=== PATIENT | female | born 1955 | race Caucasian/White ===

== ENCOUNTER 2020-04-23 08:50 | Outpatient (CLI) | payer BC, SELFPAY ==
[2020-04-23 09:22] LABS: Hematocrit 34.9 % (37.0-47.0); Hemoglobin 10.8 g/dL (12.0-15.0); Mean Corpuscular HGB Conc 30.9 g/dl (32-36); Mean Corpuscular Hemoglobin 28.3 pg (26-34); Mean Corpuscular Volume 91.4 fl (80-100); Platelet Count Result 234 k/mm3 (150-375); Red Blood Count 3.82 M/mm3 (4.2-5.4); Red Cell Distribution Width 13.2 % (11.5-14.5); White Blood Count 7.9 K/mm3 (4.5-10.0)
[2020-04-23 09:26] LABS: Add Urine Microscopic? YES; Appearance Urine Clear (Clear); Bacteria Urine Trace /hpf; Bilirubin Urine Negative (Negative); Blood Urine Negative (Negative); Color Urine Yellow (Yellow); Glucose Urine UA Negative (Negative); Ketones Urine Negative (Negative); Leukocyte Esterase Ur Trace LEU/UL (Negative); Mucus Urine Rare /lpf; Nitrate Urine Negative (Negative); Protein Urine Negative (Negative); RBC Urine 0-2 /hpf (0-2); Specific Grav Ur 1.015 (1.001-1.035); Squamous Epithelial Cell Urine Few /hpf (Few); Urobilinogen Urine Negative mg/dL (<2.0); WBC Urine 0-3 /hpf
[2020-04-23 09:38] LABS: Alanine Aminotransferase 36 U/L (4-35); Alkaline Phosphatase 118 U/L (38-126); Aspartate Amino Transferase 29 U/L (14-36); Bilirubin,Total 0.4 mg/dL (0.2-1.3); Blood Urea Nitrogen 12 mg/dL (7-17); Calcium 8.8 mg/dL (8.4-10.2); Carbon Dioxide 33 mmol/L (22-30); Chloride 101 mmol/L (98-107); Cholesterol 182 mg/dL (0-200); Estimated Glomerular Filt Rate > 60; Glucose 98 mg/dL (65-105); HDL Direct 48 mg/dL; Potassium 4.2 mmol/L (3.4-5.0); Sodium 140 mmol/L (137-145); Triglycerides 151 mg/dL (<150)
[2020-04-23 09:49] LABS: LDL Cholesterol Direct 113 mg/dL
[2020-04-23 10:12] LABS: Vitamin D 25 Hydroxy 34.1 ng/mL
[2020-04-23 10:42] LABS: Folic Acid 14.7 ng/mL (2.76->20)
[2020-04-23 12:43] LABS: Iron 63 ug/dL (37-170)
[2020-04-23 12:49] LABS: Percent Iron Saturation 14 % (20-50)
== END 2020-04-23 08:51 | disposition home or self-care (01) ==
PROVIDERS: Visit Provider Physician Assistant
DX: D64.9 Anemia, unspecified (principal); E55.9 Vitamin D deficiency, unspecified; R30.0 Dysuria
CPT/HCPCS: 36415; 80053; 80061; 81001; 82306; 82607; 82728; 82746; 83540; 83550; 84443; 85027

== ENCOUNTER 2020-05-22 00:43 | Outpatient (CLI) | payer BC, SELFPAY ==
[2020-05-22 18:11] LABS: SARS-CoV-2 RNA PCR Negative
== END 2020-05-22 00:44 | disposition home or self-care (01) ==
LOC: ANHCOVIDDT 00:43
PROVIDERS: Visit Provider Internal Medicine Gastroenterology
DX: Z01.812 Encounter for preprocedural laboratory examination (principal); Z11.59 Encounter for screening for other viral diseases
CPT/HCPCS: 87635; C9803; U0003

== ENCOUNTER 2020-05-25 01:43 | Day surgery (SDC) | payer BC, SELFPAY ==
[2020-05-17 14:16] VITALS: BMI 42.6
[2020-05-25 11:21] VITALS: BP 144/71; PULSE 78; RESP 18; TEMP 37.4; O2SAT 94; BMI 47.3
[2020-05-25] MEDS: LACTATED RINGERS 1,000 ML 150 ML IV CONT (11:38)
--- NOTE | 2020-05-25 11:42 | WPDANESEPPF ---
Anes - Initial Pre Proc Eval Procedure: Operation Date: 05/25/20 12:45 Proposed Procedures p Screening Colonoscopy - Bubba Maldonado MD Date/Time: 05/25/20 11:42 Surgeon: Bubba Maldonado MD Pre Op Diagnosis: Neoplasm Screening Patient Data Age: 65 Gender: F Height: 5 ft 8 in Weight: 141.3 kg Last Vital Signs Temp 99.4 F 05/25/20 11:21 Pulse 78 05/25/20 11:21 Resp 18 05/25/20 11:21 BP 144/71 H 05/25/20 11:21 Pulse Ox 94 05/25/20 11:21 Allergies Allergy/AdvReac Type Severity Reaction Status Date / Time No Known Allergies Allergy Mild Verified 05/25/20 11:18 Home Medications Medication Instructions Recorded Confirmed Type multivitamin with minerals 1 tablet PO DAILY 09/25/19 05/17/20 History cholecalciferol (vitamin D3) 25 1,000 unit PO DAILY 09/30/19 05/17/20 History mcg (1,000 unit) capsule citalopram 20 mg tablet 20 mg PO DAILY #30 tablet 04/26/20 05/17/20 Rx ferrous sulfate 325 mg (65 mg 325 mg PO BID #60 tablet 04/26/20 05/17/20 Rx iron) tablet cetirizine 10 mg tablet 10 mg PO DAILY #90 tablet 05/12/20 05/17/20 Rx Patient hx anesthesia problems: none Family hx anesthesia problems: none PMFSH Past Medical History Medical History (Updated 05/25/20 @ 11:42 by Jose Patricio MD) BMI 45.0-49.9, adult Hyperlipidemia Social History Social History Smoking status: Never smoker Second hand tobacco smoke exposure: No Alcohol intake: never Substance use: never Anes - Eval Final PreProcedure Day of Procedure 05/25/20 11:42 Patient weight: morbidly obese Heart: regular rate and rhythm Lungs: clear to auscultation Airway: Mallampati scale class III Neurological: alert and oriented Last oral intake: >/= 8 hours ASA classification: III Emergent: no Anesthetic plan: proceed Anesthesia type and monitoring: general and standard monitoring Informed Consent: The patient's anesthetic plan and its attendant risks and benefits were discussed with the patient/family/POA. Questions were solicited and answers provided to the satisfaction of the patient/family/POA.
[2020-05-25 11:43] VITALS: BP 144/71; PULSE 78; RESP 18; TEMP 37.4; O2SAT 94; BMI 47.3
--- NOTE | 2020-05-25 12:24 | PM.HPGS ---
History of Present Illness History of Present Illness Consent: Risks, benefits, and alternatives have been discussed and questions answered. Patient agrees to proceed with procedure. Chief complaint: Neoplasm Screening Narrative: Jana Hammonds is a 65 year old female here for screening colonoscopy Review of Systems Constitutional: Constitutional: Denies headache(s) and Denies weakness Eyes: Eyes: Denies blurry vision ENT: Reports Normal hearing present, Denies headache(s) and Denies neck pain Cardiovascular: Cardiovascular: Denies chest pain and Denies dyspnea Respiratory: Respiratory: Denies dyspnea Gastrointestinal: Gastrointestinal: Reports no additional gastrointestinal complaints Genitourinary: Genitourinary: Denies dysuria Musculoskeletal: Musculoskeletal: Denies neck pain Integumentary/Breasts: Skin/Breast: Denies dry skin Neurologic: Reports Normal hearing present, Denies headache(s) and Denies weakness Psychiatric: Psychiatric: Denies anxiety Endocrine: Endocrine: Denies change in body appearance Hematologic/Lymphatic: Hematologic/Lymphatic: Denies easy bleeding Allergic/Immunologic: Allergic/Immunologic: Denies urticaria PMF Past Medical History Medical History (Updated 05/25/20 @ 12:25 by Bubba Maldonado MD) BMI 45.0-49.9, adult Colon cancer screening Hyperlipidemia Social History Social History Smoking status: Never smoker Second hand tobacco smoke exposure: No Alcohol intake: never Substance use: never Meds Home Medications and Allergies Home Medications Medication Instructions Recorded Confirmed Type multivitamin with minerals 1 tablet PO DAILY 09/25/19 05/17/20 History cholecalciferol (vitamin D3) 25 1,000 unit PO DAILY 09/30/19 05/17/20 History mcg (1,000 unit) capsule citalopram 20 mg tablet 20 mg PO DAILY #30 tablet 04/26/20 05/17/20 Rx ferrous sulfate 325 mg (65 mg 325 mg PO BID #60 tablet 04/26/20 05/17/20 Rx iron) tablet cetirizine 10 mg tablet 10 mg PO DAILY #90 tablet 05/12/20 05/17/20 Rx Allergies Allergy/AdvReac Type Severity Reaction Status Date / Time No Known Allergies Allergy Mild Verified 05/25/20 11:18 Vital Signs Vital Signs - 24 hr 05/25/20 11:21 05/25/20 11:43 Temperature 99.4 F 99.4 F Pulse Rate 78 78 Respiratory Rate 18 18 Blood Pressure 144/71 H 144/71 H Pulse Oximetry 94 94 Exam Const: General: comfortable and no acute distress HENMT: General nose exam: Normal nares present Eyes: General: appearance normal, both eyes and all related structures Neck: Neck: no JVD Resp: Auscultation: clear to auscultation bilaterally Cardio: Rate: regular rate Rhythm: regular rhythm GI: Inspection: non-distended GI Palp: Yes Soft to palpation Skin: General skin exam: normal color Neuro: General: gait normal Speech: normal speech Extrem: General: normal to inspection Psych: Mental Status: mental status grossly normal Assessment and Plan Assessment and plan (1) Colon cancer screening: Code(s): Z12.11 - Encounter for screening for malignant neoplasm of colon Status: Acute Assessment and Plan: will proceed with colonoscopy (2) Depression with anxiety: Code(s): F41.8 - Other specified anxiety disorders Status: Acute
[2020-05-25 12:49] VITALS: BP 140/76; PULSE 78; RESP 18; O2SAT 96
[2020-05-25 12:59] VITALS: BP 151/93; PULSE 75; RESP 17; O2SAT 96
[2020-05-25 13:09] VITALS: BP 152/87; PULSE 73; RESP 19; O2SAT 96
== END 2020-05-25 13:36 | disposition home or self-care (01) ==
PROVIDERS: Visit Provider Internal Medicine Gastroenterology
PROC: 0DJD8ZZ Inspection of Lower Intestinal Tract, Via Natural or Artificial Opening Endoscopic (ICD-10-PCS; CPT 45378; principal; 2020-05-25 12:45)
DX: Z12.11 Encounter for screening for malignant neoplasm of colon (principal); K62.1 Rectal polyp; K64.8 Other hemorrhoids; E78.5 Hyperlipidemia, unspecified; E66.01 Morbid (severe) obesity due to excess calories; Z68.42 Body mass index [BMI] 45.0-49.9, adult
CPT/HCPCS: 45385; 88305; J2704; J7120

== ENCOUNTER 2021-01-07 12:57 | Observation (INO) | payer BC, SELFPAY ==
[2021-01-07] VITALS (7 sets, daily range): BP systolic 115–134; BP diastolic 61–81; PULSE 66–94; RESP 14–20; TEMP 36.4–36.7; O2SAT 94–96; BMI 47.6
--- NOTE | ~2021-01-07 | US_ITS ---
US abdomen limited INDICATION: Abdomen pain. PROCEDURE: Realtime right upper abdominal ultrasound. COMPARISON: No prior studies for comparison. FINDINGS: The pancreas is normal without focal mass or pancreatic ductal dilation. Liver echotexture is increased, consistent with fatty infiltration. There is normal directional flow in the portal ve in. There are gallstones with gallbladder wall thickening and positive sonographic Yates's sign. Common bile duct measures 4.5 mm. IMPRESSION: 1: Cholelithiasis with gallbladder wall thickening and positive sonographic Yates's sign. Findings c ompatible with cholecystitis. 2: Fatty infiltration of the liver. Reviewed, dictated and finalized at location B. IMPRESSION: 1: Cholelithiasis with gallbladder wall thickening and positive sonographic Mur phy's sign. Findings compatible with cholecystitis. 2: Fatty infiltration of the liver.
--- NOTE | ~2021-01-07 | CT_ITS ---
EXAMINATION: CT abdomen pelvis w con DATE: 01/07/2021 14:32 INDICATION: Abdominal pain for 5 days TECHNIQUE: Computed tomography (CT) of the abdomen and pelvis was performed with 100 cc Omnipaque 350 intravenous contrast. Automated exposure control and iterative reconstruction technique were employe d. Exam dose: 1496.53 mGy-cm total exam DLP. COMPARISON: None. FINDINGS: The lung bases are clear of infiltrate or consolidation. Heart size within normal range. No pericardial or pleural effusion. 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 There is gallbladder wall thickening and pericholecystic fat stranding suggesting acute cholecystitis . Gallbladder ultrasound correlation is recommended. Diffuse fatty infiltration of the liver. No hepatic space-occupying mass lesion is evident. No intrahepatic or extrahepatic bile duct dilatati on. Normal splenic size. No pancreatic mass lesion, calcification or ductal dilatation. Normal morphology of the adrenal glands. No renal mass lesion or urinary tract calculus or hydroureteronephrosis. The urinary bladder is unrem arkable. The uterus is normal in appearance as is the left ovary. There is asymmetric right ovarian enlargement, measuring up to 3.9 x 5 cm, with largely fluid attenua tion. Consider pelvic sonographic correlation. Mild diffuse urinary bladder wall thickening with minimal pericystic fat stranding; cystitis is not e xcluded. Normal caliber of the abdominal aorta. No abdominal aortic aneurysm. No intraperitoneal or retroperit diana or pelvic mass lesion or adenopathy or ascites is noted otherwise. Small fat-containing umbilical hernia. No suspicious osteolytic or osteoblastic lesions IMPRESSION: Gallbladder wall thickening and pericholecystic fat stranding suggest acute cholecystiti s Hepatic steatosis 3.9 x 5 cm cystic lesion of the right ovary; consider pelvic sonographic correlation Mild diffuse bladder wall thickening and minimal pericholecystic fat stranding; recommend clinical co rrelation for cystitis Foramen of Morgagni hernia containing fat, liver Small fat-containing umbilical hernia Reviewed, dictated and finalized at Location [facility]. Reviewed, dictated and finalized at location A. IMPRESSION: Gallbladder wall thickening and pericholecystic fat stranding sugg est acute cholecystitis Hepatic steatosis 3.9 x 5 cm cystic lesion of the right ovary; consider pelvic sonographic correl ation Mild diffuse bladder wall thickening and minimal pericholecystic fat stranding; recommend clinical correlation for cystitis Foramen of Morgagni hernia containing fat, liver Small fat-containing umbilical hernia
--- NOTE | ~2021-01-07 | MR_ITS ---
EXAMINATION: MR MRCP wo/w con/w 3D wo ind DATE: 01/08/2021 09:21 INDICATION: Elevated liver function test, abdominal pain TECHNIQUE: Magnetic resonance imaging (MRI) of the abdomen was performed without and with intravenous contrast. Sequences included coronal T2-weighted SS-FSE ARC, coronal T2-weighted FS SS-FSE, coronal T2-weighted 2D FS FIESTA, Water:Coronal LAVA-Flex, sagittal T2-weighted SS-FSE ARC, axial SSFSE ARC, axial 3D DualEcho, axial DWI B=600, axial T1-weighted LAVA, FAT:Coronal LAVA-Flex, and coronal in and opposed phase LAVA-Flex. Thick-slab T2-weighted FRFSE-XL images were obtained for magnetic resonance cholangiopancreatography (MRCP). Maximum intensity projection 3-D reconstructions of the volumetric data were created by the technologist. Postcontrast sequences included a time course of axial T1-weig hted LAVA, FAT:Coronal LAVA-Flex, coronal in and opposed phase LAVA-Flex, and Water:Coronal LAVA-Flex . COMPARISON: CT and ultrasound from yesterday CONTRAST: Multihance, 20 cc FINDINGS: ABDOMEN MRI: The lung bases are clear. The heart size is normal. There is loss of hepatic parenchymal signal on opposed phase imaging, consistent with hepatic steatosis. The spleen, pancreas, and adren al glands are normal. There is mild distention of the gallbladder which contains multiple stones. Sto germán are also noted in the gallbladder neck. Mild enhancement and thickening of the gallbladder wall a re noted. There is mild inflammation surrounding the gallbladder. There is a 6 mm cyst of the right k idney. The left kidney is unremarkable. There are no pathologically enlarged abdominal lymph nodes. N o dilated loops of bowel are present. No abnormal enhancement is present after contrast administratio n. There is a 4.7 cm cystic lesion of the right adnexa. ABDOMEN MRCP: The common bile duct is normal without stones or stricture. There is no intrahepatic or extrahepatic biliary dilatation. Pancreas divisum is noted. The pancreatic duct is not dilated. IMPRESSION: 1. Cholelithiasis and acute cholecystitis. 2. Diffuse hepatic steatosis. 3. Cystic lesion of the right adnexa. Follow-up pelvic ultrasound is recommended. Reviewed, dictated and finalized at location A. IMPRESSION: 1. Cholelithiasis and acute cholecystitis. 2. Diffuse hepatic steatosis. 3. Cystic lesion of the right adnexa. Follow-up pelvic ultrasound is recommende d.
[2021-01-07 13:25] LABS: Basophils Percent Auto 0.7 % (0.2-1.2); Eosinophils Absolute Auto 0.1 K/mm3 (0-0.3); Eosinophils Percent Auto 1.8 % (0-4.4); Hematocrit 39.8 % (37.0-47.0); Hemoglobin 13.1 g/dL (12.0-15.0); Immature Granulocyte Absolute 0.02 K/mm3 (0.00-0.031); Immature Granulocyte Percent A 0.4 % (0-0.5); Lymphocytes Absolute Auto 1.66 K/mm3 (0.9-3.2); Mean Corpuscular HGB Conc 32.9 g/dl (32-36); Mean Corpuscular Volume 91.1 fl (80-100); Mean Platelet Volume 9.2 fl (7.4-10.4); Monocytes Absolute Auto 0.4 K/mm3 (0.1-0.6); Monocytes Percent Auto 6.5 % (2.6-8.5); Neutrophils Absolute Auto 3.4 K/mm3 (1.3-6.7); Neutrophils Percent Auto 60.6 % (45.5-73.1); Platelet Count Result 213 k/mm3 (150-375); Red Blood Count 4.37 M/mm3 (4.2-5.4); White Blood Count 5.5 K/mm3 (4.5-10.0)
--- NOTE | 2021-01-07 13:43 | ED.GENADULT ---
HPI - General Adult General Chief complaint: Abdominal Pain Stated complaint: abdominal pain/back pain Time Seen by Provider: 01/07/21 13:00 Source: RN notes reviewed History of Present Illness HPI narrative: Patient presents emergency department from home for abdominal pain. Patient states pain began 5 days ago pain is located in the right side the abdomen with radiation up into the epigastric region described as sharp and stabbing in nature associated with nausea and vomiting. Reports subjective fevers at home but denies measured fever denies any chest pain shortness of breath diarrhea or any other symptoms took no pain medications today Related Data Home Medications Medication Instructions Recorded Confirmed multivitamin with minerals 1 tablet PO DAILY 09/25/19 09/27/20 Allergies Allergy/AdvReac Type Severity Reaction Status Date / Time No Known Allergies Allergy Mild Verified 01/07/21 13:07 Review of Systems Review of Systems: Narrative: Gen.: Denies fevers or chills ENT: Denies congestion Respiratory: Denies shortness of breath or cough CV: Denies chest pain or palpitations GI: See HPI denies burning, urgency, frequency or hematuria Musculoskeletal: Denies back pain or muscle pain Neuro: Denies numbness, tingling, weakness or focal weakness Skin: Denies rash Except as documented, all other systems reviewed and negative [facility] Past Medical History Medical History BMI 45.0-49.9, adult Colon cancer screening Hyperlipidemia Family History Family History Mother Hypertension Social History Social History Smoking status: Never smoker Second hand tobacco smoke exposure: No Alcohol intake: never Substance use: never Exam Narrative: Exam Narrative: APPEARANCE: No acute distress, nontoxic, resting in bed HEENT: Normocephalic, atraumatic, OMM RESPIRATORY: No respiratory distress, clear to auscultation bilaterally with no rhonchi wheezing or rales CARDIOVASCULAR: RRR s murmur ABDOMINAL: Soft nondistended tender palpation right upper quadrant lower quadrant no tenderness left upper quadrant left lower quadrant no rebound or guarding MUSCULOSKELETAl: Moves all extremities. No clubbing, cyanosis or edema. NEURO: Awake and alert. Following commands, speech normal, no focal deficits SKIN:: Warm, dry. Normal Color PSYCHIATRIC: Normal affect/mood Course Course Emergency Course: Called discussed with Dr. Lassiter presentation work-up agrees with admission at this time request ultrasound the gallbladder as well as consult to Dr. Fernandez Discussed Dr. Fernandez presentation work-up agrees with consult Discussed with patient and family results of workup and diagnosis. Discussed need for admission. Patient and family understand and agree to current treatment plan Vital Signs Vital signs: Vital Signs Temperature 98.0 F 01/07/21 13:03 Pulse Rate 94 01/07/21 13:03 Respiratory Rate 18 01/07/21 13:03 Blood Pressure 134/79 01/07/21 13:03 Pulse Oximetry 95 01/07/21 13:03 Temperature 98.0 F 01/07/21 13:03 Pulse Rate 66 01/07/21 15:23 Respiratory Rate 14 01/07/21 15:23 Blood Pressure 122/61 01/07/21 15:23 Pulse Oximetry 96 01/07/21 15:23 Medical Decision Making Vital Signs Vital Signs: Vital Signs Temperature 98.0 F 01/07/21 13:03 Pulse Rate 94 01/07/21 13:03 Respiratory Rate 18 01/07/21 13:03 Blood Pressure 134/79 01/07/21 13:03 Pulse Oximetry 95 01/07/21 13:03 Temperature 98.0 F 01/07/21 13:03 Pulse Rate 66 01/07/21 15:23 Respiratory Rate 14 01/07/21 15:23 Blood Pressure 122/61 01/07/21 15:23 Pulse Oximetry 96 01/07/21 15:23 Lab Data Result diagrams: 01/07/21 13:16 01/07/21 14:27 Labs: Lab Results 01/07/21 01/07/21 01/07/21 Rang
[2021-01-07] MEDS: SODIUM CHLORIDE 0.9% IV 1,000 ML 999 ML IV CONT (13:54)
[2021-01-07 14:29] LABS: Alanine Aminotransferase 401 U/L (4-35); Albumin Level 3.8 g/dL (3.5-5.1); Alkaline Phosphatase 215 U/L (38-126); Anion Gap 2 mmol/L (8-16); Aspartate Amino Transferase 739 U/L (14-36); Bilirubin,Total 3.9 mg/dL (0.2-1.3); Blood Urea Nitrogen 6 mg/dL (7-17); Calcium 8.3 mg/dL (8.4-10.2); Carbon Dioxide 32 mmol/L (22-30); Chloride 103 mmol/L (98-107); Estimated CRCL calculation 106 ml/min; Estimated Glomerular Filt Rate > 60; Glucose 116 mg/dL (65-105); Lipase 94 U/L (23-300); Potassium 3.9 mmol/L (3.4-5.0); Sodium 137 mmol/L (137-145)
[2021-01-07 14:29] LABS: Estimated CRCL calculation 106 ml/min; Estimated Glomerular Filt Rate > 60
[2021-01-07 15:35] LABS: Add Urine Microscopic? YES; Appearance Urine Cloudy (Clear); Bacteria Urine Trace /hpf; Bilirubin Urine Negative (Negative); Blood Urine Negative (Negative); Color Urine Amber (Yellow); Glucose Urine UA Negative (Negative); Ketones Urine Negative (Negative); Leukocyte Esterase Ur Trace LEU/UL (Negative); Mucus Urine Rare /lpf; Nitrate Urine Negative (Negative); Protein Urine Negative (Negative); RBC Urine 0-2 /hpf (0-2); Squamous Epithelial Cell Urine Few /hpf (Few); Transitional Epi Cells Urine Rare /hpf (None Seen); WBC Urine 16-20 /hpf
[2021-01-07 15:37] LABS: Specific Grav Ur 1.045 (1.001-1.035)
[2021-01-07] MEDS: SODIUM CHLORIDE 0.9% IV 1,000 ML 125 ML IV CONT (16:36)
--- NOTE | 2021-01-07 16:42 | ADMGEN ---
This patient, Jana Hammonds, was admitted to Medical Room 244-. Patient/family oriented to hospital policies and general routines including ID bracelet, bed and alarms, visiting hours, pain management, procedures, bathroom and other care routines, personal items, smoking policy, room service/diet, and visiting hours. Information on how to activate the Rapid Response Team has been discussed. Patient/Family are encouraged to report perceived risks to care and to ask questions if they do not understand what they are told or what they should do.
--- NOTE | 2021-01-07 17:57 | PM.IMHP ---
H&P: HPI History of Present Illness Date/Time: 01/07/21 17:57 Patient is a 65-year-old white female who presents emergency department from home for abdominal pain. Patient states pain began 5 days ago and pain is located in the right side the abdomen with radiation up into the epigastric region and right scapular region on the back. The pain is described as sharp and stabbing in nature associated with nausea and vomiting. Reports subjective fevers at home but denies measured fever. She denies any chest pain or shortness of breath. She took no pain medications at home for her pain today. Further history to me today is that the current episode really started after eating a buttered Croissant and some coffee with cream in it yesterday morning. In the days prior to that starting on Sunday of this week she was having on and off abdominal pain not enough to make her take medication or come to the ER. Her previous abdominal surgeries include 3 C-sections and then a laparoscopic ventral incisional hernia repair with mesh about 5 - 10 years ago. SHe believes that the mesh repair was in the danial-umbilical area. Chief Complaint: Abdominal Pain Review of Systems Constitutional: Constitutional: Reports malaise (Since yesterday morning) Eyes: Eyes: Denies loss of vision and Denies eye pain ENT: Reports Normal hearing present, Denies change in voice, Denies dizziness and Denies headache(s) Cardiovascular: Cardiovascular: Denies chest pain and Denies dyspnea Respiratory: Respiratory: Denies dyspnea and Denies wheezing Gastrointestinal: Gastrointestinal: Reports diarrhea ( as much as 5 times per day in October, that improved some in November.) Comments: Current episode of pain started after Saran aunt and coffee with lots of cream minute 2 mornings ago. most recent surgery was a laparoscopic umbilical hernia repair in the periumbilical area done approximately 5-10 years ago. Genitourinary: Genitourinary: Reports no additional female genitourinary complaints Comments: history of 3 previous C-sections Musculoskeletal: Musculoskeletal: Denies back pain and Denies arthralgias Integumentary/Breasts: Comments: Last screening mammogram was in 10/2019 and was OK. Neurologic: Reports Normal hearing present, Denies dizziness, Denies headache(s), Denies loss of vision and Denies memory loss Psychiatric: Psychiatric: Reports anxiety (Takes a daily med for this.), Denies memory loss and Denies panic attacks Endocrine: Endocrine: Reports no additional endocrine complaints Hematologic/Lymphatic: Hematologic/Lymphatic: Reports no additional hematologic/lymphatic complaints Allergic/Immunologic: Allergic/Immunologic: Reports urticaria (gets spontaneous small red hives if she doesn't take Cetirizine (Zyrtec)) and Denies wheezing [facility] Past Medical History Medical History (Updated 01/07/21 @ 21:34 by Eamon Lassiter MD) BMI 45.0-49.9, adult Colon cancer screening Hyperlipidemia Morbid obesity with BMI of 45.0-49.9, adult Surgical History Surgical History (Updated 01/07/21 @ 18:01 by Eamon Lassiter MD) H/O ventral hernia repair Family History Family History Mother Hypertension Father History of quadruple bypass Congestive heart failure Sibling Congestive heart failure Social History Social History Smoking status: Never smoker Second hand tobacco smoke exposure: No Alcohol intake: current Drinks per week: 1 Substance use: never Substance use type: does not use Gender identity (if verbalized by the patient): Female Spiritual care concerns: No Meds Home Medications and Allergies Home Medications Medication Instructions Recorded Confirmed Type cetirizine [Zyrtec] 10 mg PO HS 01/07/21 01/07/21 History citalopram 20 mg PO HS 01/07/21 01/07/21 History ferrous sulfate 325 mg PO BID 01/07/2101/07
[2021-01-07] MEDS: CITALOPRAM HYDROBROMIDE 20 MG TABLET PO (20:45)
[2021-01-07] MEDS: LORATADINE 10 MG TABLET PO (20:45)
[2021-01-07] MEDS: polyethylene glycoL 3350 17 GM POWD.PACK PO (22:34)
[2021-01-08] MEDS: MORPHINE SULFATE (*CRX) 4 MG/ML INJ IV PUSH (00:31)
[2021-01-08] MEDS: SODIUM CHLORIDE 0.9% IV 1,000 ML 125 ML IV CONT ×3 (00:31→20:55)
[2021-01-08 05:11] LABS: Basophils Percent Auto 0.7 % (0.2-1.2); Eosinophils Absolute Auto 0.1 K/mm3 (0-0.3); Eosinophils Percent Auto 2.4 % (0-4.4); Hematocrit 34.5 % (37.0-47.0); Hemoglobin 11.2 g/dL (12.0-15.0); Immature Granulocyte Absolute 0.01 K/mm3 (0.00-0.031); Immature Granulocyte Percent A 0.2 % (0-0.5); Lymphocytes Absolute Auto 1.23 K/mm3 (0.9-3.2); Lymphocytes Percent Auto 20.8 % (18.3-44.2); Mean Corpuscular HGB Conc 32.5 g/dl (32-36); Mean Corpuscular Hemoglobin 29.5 pg (26-34); Mean Corpuscular Volume 90.8 fl (80-100); Mean Platelet Volume 9.4 fl (7.4-10.4); Monocytes Absolute Auto 0.4 K/mm3 (0.1-0.6); Monocytes Percent Auto 6.3 % (2.6-8.5); Neutrophils Absolute Auto 4.1 K/mm3 (1.3-6.7); Neutrophils Percent Auto 69.6 % (45.5-73.1); Platelet Count Result 176 k/mm3 (150-375); White Blood Count 5.9 K/mm3 (4.5-10.0)
[2021-01-08 05:19] LABS: Alanine Aminotransferase 422 U/L (4-35); Albumin Level 3.3 g/dL (3.5-5.1); Alkaline Phosphatase 195 U/L (38-126); Anion Gap 4 mmol/L (8-16); Aspartate Amino Transferase 634 U/L (14-36); Bilirubin,Total 3.9 mg/dL (0.2-1.3); Blood Urea Nitrogen 4 mg/dL (7-17); Calcium 7.9 mg/dL (8.4-10.2); Carbon Dioxide 31 mmol/L (22-30); Chloride 103 mmol/L (98-107); Estimated CRCL calculation 121 ml/min; Estimated Glomerular Filt Rate > 60; Glucose 97 mg/dL (65-105); Lipase 117 U/L (23-300); Magnesium 1.8 mg/dL (1.6-2.3); Potassium 3.6 mmol/L (3.4-5.0); Sodium 138 mmol/L (137-145)
[2021-01-08 05:27] VITALS: BP 103/48; PULSE 76; RESP 20; TEMP 36.2; O2SAT 98
--- NOTE | 2021-01-08 07:51 | ECG_ITS ---
Measurements Intervals Archer Rate: 76 P: 40 FL: 158 QRS: 33 QRSD: 96 T: 42 QT: 402 QTc: 455 Interpretive Statements SINUS RHYTHM DELAYED PRECORDIAL R/S TRANSITION BORDERLINE ST ABNORMALITY- ANTEROLAT/INF LEADS BORDERLINE ECG Electronically Signed On 01-08-2021 10:10:17 CDT by Jethro Ridley D.O.
[2021-01-08 08:07] VITALS: O2SAT 98
--- NOTE | 2021-01-08 10:17 | PM.PNGS ---
Progress Note: A&P Assessment and Plan (1) Cholelithiasis with acute cholecystitis with biliary obstruction: Onset Date: ~01/05/21 Code(s): K80.01 - Calculus of gallbladder with acute cholecystitis with obstruction Status: Acute Assessment and Plan: I have reviewed her MRCP preliminarily with Dr. Solis. We do not see any common bile duct stones. She has pancreas divisum but no signs of pancreatitis. I therefore scheduled her for a laparoscopic cholecystectomy with intraoperative cholangiogram possible open cholecystectomy for Sunday01/09/2021. Risks benefits possible complications discussed and a patient information sheet provided to the patient. All questions answered. (2) Ovarian mass, right: Onset Date: Unknown Code(s): N83.8 - Other noninflammatory disorders of ovary, fallopian tube and broad ligament Status: Acute Assessment and Plan: This was unknown to the patient. On MR this does not look concerning. Most likely cystic. Probably needs to follow-up with her jd edwards and have a see interval pelvic ultrasound to confirm that it looks benign on that also. (3) Morbid obesity with BMI of 45.0-49.9, adult: Onset Date: Unknown Code(s): E66.01 - Morbid (severe) obesity due to excess calories; Z68.42 - Body mass index [BMI] 45.0-49.9, adult Status: Acute Assessment and Plan: Patient knows that this makes her procedure more complicated. She will use incentive spirometry will use SCD hose to prevent DVT. Will try to do early ambulation postop. (4) H/O ventral hernia repair: Onset Date: Unknown Code(s): Z98.890 - Other specified postprocedural states; Z87.19 - Personal history of other diseases of the digestive system Status: Acute Assessment and Plan: done approximately 5 years ago. Reviewing the CT with Dr. Solis it appears that the mesh is about 11 cm in diameter cephalad to caudad and stools center slightly above the level of the umbilicus. (5) Elevated LFTs: Onset Date: Unknown Code(s): R79.89 - Other specified abnormal findings of blood chemistry Status: Acute Assessment and Plan: These in general about the same today as yesterday. Bilirubin is exactly the same 3.9. Will do hepatic panel and see BMP tomorrow instead of CMP. Await final report on MRCP. Will leave it up to Dr. Fernandez for any other liver studies that he may feel are indicated since there is not obvious explanation for the elevated liver function tests at this time period Additional Plan patient seems to be somewhat obstipated so will have her do a fleets enema this morning and see how that goes probably a repeat dose of MiraLax at noon today. Will let her have clear liquids until midnight tonight. Time Spent With Patient Time with patient: 15 - 25 minutes Subjective Subjective Date/Time Seen: 01/08/21 09:17 patient states she had a little bit of nausea and some back pain after taking clear liquids last evening. She had her ER MRCP early this morning. She is otherwise feeling okay is taking occasional medicine for pain. Review of Systems Constitutional: Constitutional: Reports no additional constitutional complaints ENT: Reports other (Mucous Membranes moist.) Cardiovascular: Cardiovascular: Denies dyspnea Respiratory: Respiratory: Denies pain on inspiration and Denies dyspnea Gastrointestinal: Gastrointestinal: Reports constipation, Denies diarrhea and Denies vomiting Comments: Mild epigastric pain Genitourinary: Comments: MRCP/ abd. MR suggests that the right ovarian mass is a cystic change and there is no enhancement to suggest malignancy. Musculoskeletal: Musculoskeletal: Reports other (No calf swelling or edema) Integumentary/Breasts: Skin/Breast: Reports system reviewed and no additional complaints, except as docu Exam Const: General: cooperative, no acute distress, alert and awake Orientat
[2021-01-08] MEDS: ONDANSETRON INJ 4 MG/2 ML VIAL IV PUSH (10:22)
--- NOTE | 2021-01-08 10:52 | WPDGICN ---
Assessment and Plan Assessment and plan (1) Acute cholecystitis: Code(s): K81.0 - Acute cholecystitis Status: Acute Assessment and Plan: MRCP pending to rule out bile duct stones, if clear then she will get lap jorge by surgery already on abx (2) Elevated LFTs: Onset Date: Unknown Code(s): R79.89 - Other specified abnormal findings of blood chemistry Status: Acute Assessment and Plan: probably from cholecystitis, on antibiotics surgery soon (3) RUQ pain: Code(s): R10.11 - Right upper quadrant pain Status: Acute Assessment and Plan: supportive care (4) Morbid obesity with BMI of 45.0-49.9, adult: Onset Date: Unknown Code(s): E66.01 - Morbid (severe) obesity due to excess calories; Z68.42 - Body mass index [BMI] 45.0-49.9, adult Status: Acute Assessment and Plan: diet (5) Colon cancer screening: Code(s): Z12.11 - Encounter for screening for malignant neoplasm of colon Status: Acute Assessment and Plan: already had colonoscopy last year GI Consult Note Consult date/time: 01/08/21 10:52 Reason for consult: ruq pain, elevated liver enzymes HPI: Jana Hammonds is a 65 year old female who came to the emergency department from home with new onsent of abdominal pain that started about 5 days ago, right side the abdomen with radiation to epigastric region and right back, pain described as sharp and stabbing, moderate intensity and also had nausea and vomiting. She also had chills and finally came here. ER evaluation showed elevated liver enzymes, TB 3.9, transaminases 400-600 (liver enzymes few months ago normal value- reviewed), she denies history of liver disease, only social drinker. CT scan reviewed, showed Gallbladder wall thickening and pericholecystic fat stranding suggest acute cholecystitis, hepatic steatosis, 3.9 x 5 cm cystic lesion of the right ovary. MRCP was just done and result pending. Surgery on board. Never had EGD, had colonoscopy last year with polyp removed. Review of Systems Constitutional: Constitutional: Reports chills Eyes: Eyes: Denies blurry vision ENT: Reports Normal hearing present Cardiovascular: Cardiovascular: Denies chest pain Respiratory: Respiratory: Denies dyspnea Gastrointestinal: Gastrointestinal: Reports abdominal pain, Reports nausea and Reports vomiting Genitourinary: Genitourinary: Denies hematuria Musculoskeletal: Musculoskeletal: Denies neck pain Integumentary/Breasts: Skin/Breast: Reports system reviewed and no additional complaints, except as docu Neurologic: Denies headache(s) Psychiatric: Psychiatric: Denies behavioral changes [facility] Past Medical History Medical History (Updated 01/08/21 @ 11:01 by Bubba Maldonado MD) BMI 45.0-49.9, adult Colon cancer screening Hyperlipidemia Morbid obesity with BMI of 45.0-49.9, adult (Unknown) RUQ pain Surgical History Surgical History (Updated 01/08/21 @ 10:24 by Eamon Lassiter MD) H/O ventral hernia repair (Unknown) Family History Family History Mother Hypertension Father History of quadruple bypass Congestive heart failure Sibling Congestive heart failure Social History Social History Smoking status: Never smoker Second hand tobacco smoke exposure: No Alcohol intake: current Drinks per week: 1 Substance use: never Substance use type: does not use Gender identity (if verbalized by the patient): Female Spiritual care concerns: No Meds Home Medications and Allergies Home Medications Medication Instructions Recorded Confirmed Type cetirizine [Zyrtec] 10 mg PO HS 01/07/21 01/07/21 History citalopram 20 mg PO HS 01/07/21 01/07/21 History ferrous sulfate 325 mg PO BID 01/07/21 01/07/21 History Allergies Allergy/AdvReac Type Severity Reaction Statu
[2021-01-08 10:55] VITALS: BP 122/61; PULSE 75; RESP 16; O2SAT 98
[2021-01-08 14:00] VITALS: BP 127/71; PULSE 72; RESP 16; TEMP 36.6; O2SAT 87
[2021-01-08] MEDS: polyethylene glycoL 3350 17 GM POWD.PACK PO (15:46)
--- NOTE | 2021-01-08 15:52 | WPDANESEPP ---
Anes - Eval Pre Procedure Procedure: Laparoscopic cholecystectomy with IOCS Date/Time: 01/08/21 15:52 Pre Op Diagnosis: Cholecystitis Patient Data Age: 65 Gender: F Height: 1.73 m Weight: 142 kg Last Vital Signs Temp 36.6 C 01/08/21 14:00 Pulse 72 01/08/21 14:00 Resp 16 01/08/21 14:00 BP 127/71 01/08/21 14:00 Pulse Ox 87 L 01/08/21 14:00 Allergies Allergy/AdvReac Type Severity Reaction Status Date / Time No Known Allergies Allergy Mild Verified 01/07/21 16:51 Home Medications Medication Instructions Recorded Confirmed Type cetirizine [Zyrtec] 10 mg PO HS 01/07/21 01/07/21 History citalopram 20 mg PO HS 01/07/21 01/07/21 History ferrous sulfate 325 mg PO BID 01/07/21 01/07/21 History Laboratory Tests 01/08/21 01/08/21 04:19 04:19 WBC 5.9 K/mm3 K/mm3 (4.5-10.0) RBC 3.80 M/mm3 L M/mm3 (4.2-5.4) Hgb 11.2 g/dL L g/dL (12.0-15.0) Hct 34.5 % L % (37.0-47.0) MCV 90.8 fl fl (80-100) MCH 29.5 pg pg (26-34) MCHC 32.5 g/dl g/dl (32-36) RDW 13.0 % % (11.5-14.5) Plt Count 176 k/mm3 k/mm3 (150-375) MPV 9.4 fl fl (7.4-10.4) Immature Gran % (Auto) 0.2 % % (0-0.5) Neut % (Auto) 69.6 % % (45.5-73.1) Lymph % (Auto) 20.8 % % (18.3-44.2) [place] % (Auto) 6.3 % % (2.6-8.5) Eos % (Auto) 2.4 % % (0-4.4) Baso % (Auto) 0.7 % % (0.2-1.2) Lymph # (Auto) 1.23 K/mm3 K/mm3 (0.9-3.2) [place] # (Auto) 0.4 K/mm3 K/mm3 (0.1-0.6) Eos # (Auto) 0.1 K/mm3 K/mm3 (0-0.3) Baso # (Auto) 0.0 K/mm3 K/mm3 (0.0-0.1) Abs Immat Gran (auto) 0.01 K/mm3 K/mm3 (0.00-0.031) Absolute Neuts (auto) 4.1 K/mm3 K/mm3 (1.3-6.7) Absolute Nucleated RBC 0.0 K/mm3 K/mm3 (0.0-0.012) Nucleated RBC % 0.0 % % (0.0-0.2) Sodium 138 mmol/L mmol/L (137-145) Potassium 3.6 mmol/L mmol/L (3.4-5.0) Chloride 103 mmol/L mmol/L (98-107) Carbon Dioxide 31 mmol/L H mmol/L (22-30) Anion Gap 4 mmol/L L mmol/L (8-16) BUN 4 mg/dL L mg/dL (7-17) Creatinine 0.60 mg/dL L mg/dL (0.7-1.0) Estim Creat Clear Calc 121 ml/min ml/min Estimated GFR > 60 (59 - ) Glucose 97 mg/dL mg/dL (65-105) Calcium 7.9 mg/dL L mg/dL (8.4-10.2) Magnesium 1.8 mg/dL mg/dL (1.6-2.3) Total Bilirubin 3.9 mg/dL H mg/dL (0.2-1.3) AST 634 U/L H U/L (14-36) ALT 422 U/L H U/L (4-35) Alkaline Phosphatase 195 U/L H U/L (38-126) Total Protein 7.0 g/dL g/dL (6.3-8.2) Albumin 3.3 g/dL L g/dL (3.5-5.1) Lipase 117 U/L U/L (23-300) Patient hx anesthesia problems: none Family hx anesthesia problems: none PMFSH Past Medical History Medical History BMI 45.0-49.9, adult Colon cancer screening Hyperlipidemia Morbid obesity with BMI of 45.0-49.9, adult (Unknown) RUQ pain Surgical History Surgical History H/O ventral hernia repair (Unknown) Family History Family History Mother Hypertension Father History of quadruple bypass Congestive heart failure Sibling Congestive heart failure Social History Social History Smoking status: Never smoker Second hand tobacco smoke exposure: No Alcohol intake: current Drinks per week: 1 Substance use: never Substance use type: does not use Gender identity (if verbalized by the patient): Female Spiritual care concerns: No Exam Day of Procedure 01/08/21 15:52 Patient weight: morbidly obese Heart: regular rate and rhythm Lungs: clear to auscultation Airway: Mallampati scale class III Neurological: alert and oriented
[2021-01-08 16:49] VITALS: O2SAT 93
[2021-01-08] MEDS: CITALOPRAM HYDROBROMIDE 20 MG TABLET PO (20:51)
[2021-01-08] MEDS: LORATADINE 10 MG TABLET PO (20:51)
[2021-01-08 21:33] VITALS: BP 118/65; PULSE 64; RESP 22; TEMP 36.1; O2SAT 92
[2021-01-09] VITALS (11 sets, daily range): BP systolic 110–160; BP diastolic 55–77; PULSE 66–86; RESP 14–20; TEMP 35.9–36.7; O2SAT 92–97
[2021-01-09] MEDS: SODIUM CHLORIDE 0.9% IV 1,000 ML 125 ML IV CONT (05:02)
[2021-01-09 05:33] LABS: Alanine Aminotransferase 316 U/L (4-35); Albumin Level 3.4 g/dL (3.5-5.1); Alkaline Phosphatase 179 U/L (38-126); Anion Gap 0 mmol/L (8-16); Aspartate Amino Transferase 262 U/L (14-36); Bilirubin,Total 1.3 mg/dL (0.2-1.3); Blood Urea Nitrogen 2 mg/dL (7-17); Carbon Dioxide 32 mmol/L (22-30); Chloride 106 mmol/L (98-107); Estimated CRCL calculation 142 ml/min; Estimated Glomerular Filt Rate > 60; Glucose 93 mg/dL (65-105); Lipase 63 U/L (23-300); Potassium 3.7 mmol/L (3.4-5.0); Sodium 138 mmol/L (137-145)
--- NOTE | 2021-01-09 07:15 | P.HPUP_ITS ---
History and Physical Update Update Date/Time: 01/09/21 07:15 History and Physical has been reviewed, including an updated exam of the patient. There are changes in the patient's condition. The patient had an MRCP yesterday. This showed no stones in the common bile duct. Also her liver f unction tests have improved in that her bilirubin now is in normal range and the direct bilirubin is 0.0. She states her pain has decreased significantly. Risks, benefits, and alternatives of a laparoscopic cholecystectomy possible cholangiogram possible open cholecystectomy have been discussed and questions answered. Patient agrees to proceed with procedure.
--- NOTE | 2021-01-09 07:28 | PC.NURSE ---
To OR per bed IV 22 left hand saline locked. Nightshift RN gave report to surgery.
[2021-01-09 07:29] LABS: HAV RESULT Negative (Negative); Hepatitis B Core IgM Result Negative (Negative); Hepatitis B Surface Antigen Negative (Negative); Hepatitis C Virus Antibody Negative (Negative)
--- NOTE | 2021-01-09 07:36 | WPDANESEFPP ---
Anes - Eval Final PreProcedure Day of Procedure 01/09/21 07:36 Patient weight: morbidly obese Heart: regular rate and rhythm Lungs: clear to auscultation and normal air movement Airway: Mallampati scale class II Neurological: alert and oriented Last oral intake: >/= 8 hours ASA classification: III Emergent: no Anesthetic plan: proceed Anesthesia type and monitoring: general ETT and standard monitoring Informed Consent: The patient's anesthetic plan and its attendant risks and benefits were discussed with the patient/family/POA. Questions were solicited and answers provided to the satisfaction of the patient/family/POA.
[2021-01-09] MEDS: LACTATED RINGERS 1,000 ML 30 ML IV CONT ×2 (08:00→10:34)
[2021-01-09] MEDS: BUPIVACAINE/EPINEPHRINE 0.5% 30 ML VIAL INFILTRATE (08:14)
--- NOTE | 2021-01-09 10:17 | PM.PROC ---
Procedure Note - Detailed Date of procedure: 01/09/21 Pre-op diagnosis: Cholecystitis Acute Cholecystitis with Cholelithiasis Post-op diagnosis: other (1. Acute cholecystitis with cholelithiasis 2.Rt. Ovarian mass/cyst) Procedure performed: Laparoscopic Cholecystectomy Description of procedure: Patient was seen preoperatively in the holding area and risks, benefits and alternatives confirmed. Patient was taken to the operating room and general anesthesia was induced. A time out was then preformed with the surgery team confirming patient and site of surgery. The abdomen was prepped and draped in the usual sterile fashion. Because the patient had previously had laparoscopy in a midline ventral incisional hernia repair with mesh I started by using the Veress needle technique in the left upper quadrant. To do this the head was placed slightly up OG tube was in place and on suction. I used a long Veress needle and we carefully inserted this through a 5 mm incision in the left subcostal area. After insufflation was completed after the water drop test showed the low resistance in the peritoneum we insufflated to 14 mmHg pressure. Following this a long 5 mm port was placed over the 0 degree 5 mm scope and we carefully twisted and turned this into the abdomen. We are then able to inspect the inside the abdomen there were lots of adhesions starting at the lower end of the falciform and extending down along the midline I simply ran around these to the left and we were able to see a position where we could place the 2 5 mm lateral ports in the subcostal area on the right. These were done under direct vision. Three 5 mm trocars were then introduced under direct vision. The following trocars were introduced under direct vision: a 5 mm in the epigastrium and two 5 mm trocars along the right costal margin laterally in the subcostal area. Initial exploration revealed lots of adhesions along the midline from her previous ventral incisional hernia surgery and we could see what looked like the edge of the mesh somewhat right lateral to her umbilicus. I chose a site just lateral to where we could see coleen edge of mesh for our 12 mm port site. Local was place and a 12 mm incision was made and the long 12 mm port was passed under direct vision with the laparoscope. We then continued exploration by putting the patient's head down and using the other 5 mm ports in the upper abdomen I was able to manipulate the bowel but we could never get into a position even though we put her head down and rotated her to far the left to where we could see the pelvic organs. Therefore, we did not take any pictures of the ovarian mass and were never able to see it. There was significant omental adhesions to the underside of the gallbladder. These were taken down with blunt and sharp dissection using some Bovie cautery for hemostasis. We were able to dissect this completely away from the neck of the gallbladder. I then carefully used the L-shaped cautery and the [place] dissector to dissect out the triangle of [place]. I then was able to dissect out both the cystic duct and cystic artery and identify a window of safety. The gall bladder was grasped and the cystic duct and artery were dissected free and clipped with an 5 mm endo-clip laborer cook house. The cystic duct and artery were clipped with use of 2 clips on the patient's side 1 on the gallbladder side utilizing a 5 mm endoclip-laborer cook house. The cystic duct was then transected. The cystic artery was also transected at this point. The gall bladder was removed using electrocautery and then removed from the abdomen using an endobag . In order to get the thickened GB out of the abdomen within the gallbladder I did make the fascial defect slightly larger with Cortez scissors. We placed the laparoscoped back in at the umbilical port and carefully irrigated and recheck the gallbladder bed there was no sign of bile leak or bleeding. We irrigated this nicely and
[2021-01-09] MEDS: fentaNYL CITRATE INJ (*CRX) 100 MCG/2 ML VIAL 25 MCG IV PUSH ×2 (11:07→11:20)
--- NOTE | 2021-01-09 12:00 | PC.NURSE ---
Returned from OR per bed. Report received from ELVIN Clemons.
[2021-01-09] MEDS: HYDROcodone/acetaminophen (*CRX) 5-325 MG TABLET 1 TAB PO ×2 (12:14→19:24)
--- NOTE | 2021-01-09 18:46 | PM.DS ---
DS: Admitting Diagnosis Admitting Diagnosis Admitting Diagnosis: Acute cholecystitis with cholelithiasis with obstruction. DS: Discharge Diagnosis Discharge Diagnosis (1) Cholelithiasis with acute cholecystitis with biliary obstruction: Onset Date: ~01/05/21 Code(s): K80.01 - Calculus of gallbladder with acute cholecystitis with obstruction Status: Acute Assessment and Plan: this was the main reason for the patient's admission. She was followed closely and GI consultation obtained. MRCP showed no common bile duct stones the patient was taken to the operating had an laparoscopic cholecystectomy. (2) Ovarian mass, right: Onset Date: Unknown Code(s): N83.8 - Other noninflammatory disorders of ovary, fallopian tube and broad ligament Status: Acute Assessment and Plan: This was seen on the original CT. MR suggested this was a benign-appearing simple cyst of the right ovary. Recommended to the patient she follow up the next 2 months with her furniture assembler and consider follow-up ultrasound of the pelvis for this. She will discuss it with Dr. Kay who is her Ob/ Gyne. (3) Morbid obesity with BMI of 45.0-49.9, adult: Onset Date: Unknown Code(s): E66.01 - Morbid (severe) obesity due to excess calories; Z68.42 - Body mass index [BMI] 45.0-49.9, adult Status: Acute (4) H/O ventral hernia repair: Onset Date: Unknown Code(s): Z98.890 - Other specified postprocedural states; Z87.19 - Personal history of other diseases of the digestive system Status: Acute (5) Elevated LFTs: Onset Date: Unknown Code(s): R79.89 - Other specified abnormal findings of blood chemistry Status: Acute Assessment and Plan: Please see Dr. Fernandez is consultation. Hepatitis screen was done and was negative. DS: Summary Hospital Course Reason for hospitalization: acute cholecystitis with cholelithiasis and obstruction Hospital Course: patient had an unremarkable hospital course. She was admitted and follow-up revealed no common bile duct stones by MRCP even though she had elevated liver function test. GI consultation was obtained. Because there was no common bile duct obstruction I went ahead with a laparoscopic cholecystectomy with successful removal of the gallbladder. It did appear she had acute cholecystitis because there was white bile. The time of discharge culture of bile from gallbladder was still pending. She received 2 days of antibiotics with 2 doses after her procedure so I do not believe she needs any more. She will call us if she begins running a fever has other problems. She was tolerating a low-fat diet on the night of discharge. Status at Discharge Cognitive/behavioral status at discharge: normal Functional status at discharge: independent ambulation Overall status at discharge: patient is not back to baseline ( patient is moving slightly slower than normal but otherwise doing well.) Time Spent with Patient Time attestation: Total time spent providing and/or coordinating discharge services: Time spent: Less than 30 minutes Exam Const: General: cooperative, no acute distress, alert and awake Orientation/consciousness: patient oriented x3 HENMT: Mouth: Yes moist mucous membranes Neck: Neck: normal visual inspection Chest: Chest palpation & inspection: normal inspection of the chest Resp: Effort & Inspection: normal respiratory effort Auscultation: clear to auscultation bilaterally Cardio: Jugular venous distension: no JVD Rate: regular rate Rhythm: regular rhythm GI: Inspection: incision ( Clean and dry with surgical glue in place.) GI Palp: Yes Soft to palpation Auscultation: normal bowel sounds Rectal Exam: deferred Neuro: General: patient oriented x3 and moves all extremities Speech: normal speech Extrem: General: normal exam except as noted Psych: Mental Status: mental status grossly normal Speech and movement:
== END 2021-01-09 20:10 | disposition home or self-care (01) ==
LOC: ANHED 13:28 → ANH2MED 15:34
PROVIDERS: Internal Medicine Gastroenterology; Admitting Provider Surgery; Emergency Provider Emergency Medicine; PCP Internal Medicine; Visit Provider Surgery
PROC: 0FT44ZZ Resection of Gallbladder, Percutaneous Endoscopic Approach (ICD-10-PCS; CPT 47562; principal; 2021-01-09 07:30)
DX: K80.01 Calculus of gallbladder with acute cholecystitis with obstruction (principal); N83.201 Unspecified ovarian cyst, right side; K82.8 Other specified diseases of gallbladder; R79.89 Other specified abnormal findings of blood chemistry; E66.01 Morbid (severe) obesity due to excess calories; K76.0 Fatty (change of) liver, not elsewhere classified; Z68.42 Body mass index [BMI] 45.0-49.9, adult
CPT/HCPCS: 47562; 36415; 74177; 74183; 76376; 76705; 80048; 80053; 80074; 80076; 81001; 83690; 83735; 85025; 86850; 86900; 86901; 87070; 87075; 87086; 87088; 87205; 88304; 93005; 96361; 96365; 96366; 96375; 96376; 99285; A9270; A9577; G0378; J0131; J0330; J1100; J2270; J2370; J2405; J2543; J2704; J2710; J3010; J7030; J7120; Q9967

== ENCOUNTER 2021-01-26 11:27 | Outpatient (CLI) | payer MEDICARE, BC, SELFPAY ==
[2021-01-26 12:36] LABS: Alanine Aminotransferase 19 U/L (4-35); Albumin Level 3.9 g/dL (3.5-5.1); Alkaline Phosphatase 105 U/L (38-126); Anion Gap 3 mmol/L (8-16); Aspartate Amino Transferase 24 U/L (14-36); Bilirubin,Total 0.4 mg/dL (0.2-1.3); Blood Urea Nitrogen 10 mg/dL (7-17); Calcium 8.6 mg/dL (8.4-10.2); Carbon Dioxide 34 mmol/L (22-30); Chloride 104 mmol/L (98-107); Estimated Glomerular Filt Rate > 60; Glucose 94 mg/dL (65-105); Potassium 4.8 mmol/L (3.4-5.0); Sodium 141 mmol/L (137-145)
== END 2021-01-26 11:28 | disposition home or self-care (01) ==
PROVIDERS: PCP Internal Medicine; Visit Provider Surgery
DX: R79.89 Other specified abnormal findings of blood chemistry (principal)
CPT/HCPCS: 36415; 80053

== ENCOUNTER 2021-02-07 10:39 | Outpatient (CLI) | payer MEDICARE, BC, SELFPAY ==
--- NOTE | ~2021-02-07 | US_ITS ---
EXAMINATION: US pelvic complete w TV DATE: 02/07/2021 11:22 INDICATION: Right ovarian mass. Postmenopausal mass. Comparison:Ovarian mass TECHNIQUE: Multiple transabdominal and endovaginal sonographic images of the pelvis performed. FINDINGS: The uterus measures 6.6 x 3.2 x 3.6 cm. The endometrial complex measures 8 mm. The right ovary measures 5.3 x 4.7 x 5.3 cm. There is a large septated cystic mass of the right ovary measuring 4.7 x 4.4 x 4.2 cm. The left ovary is not visualized. There is no free fluid in the pelvis. There are no abnormal masses seen on either side. IMPRESSION: 1. 4.7 x 4.4 x 4.2 cm septated right ovarian cyst. 2: Thickened endomtrial complex. The differential diagnosis includes endometrial hyperplasia, polyp a nd carcinoma. Biopsy is recommended. Reviewed, dictated and finalized at location B. IMPRESSION: 1. 4.7 x 4.4 x 4.2 cm septated right ovarian cyst. 2: Thickened endomtrial complex. The differential diagnosis includes endometria l hyperplasia, polyp and carcinoma. Biopsy is recommended.
== END 2021-02-07 10:40 | disposition home or self-care (01) ==
PROVIDERS: PCP Internal Medicine; Visit Provider Obstetrics & Gynecology
DX: N83.201 Unspecified ovarian cyst, right side (principal)
CPT/HCPCS: 76830; 76856

== ENCOUNTER 2021-02-14 08:14 | Outpatient (CLI) | payer MEDICARE, SELFPAY ==
[2021-02-17 02:47] LABS: CA-125 6 U/mL (<35)
== END 2021-02-14 08:15 | disposition home or self-care (01) ==
PROVIDERS: PCP Internal Medicine; Visit Provider Obstetrics & Gynecology
DX: N94.9 Unspecified condition associated with female genital organs and menstrual cycle (principal); R19.09 Other intra-abdominal and pelvic swelling, mass and lump
CPT/HCPCS: 36415; 86304

== ENCOUNTER 2022-05-10 09:18 | Outpatient (CLI) | payer MEDICARE, SELFPAY ==
[2022-05-10 09:50] LABS: Basophils Percent Auto 0.5 % (0.2-1.2); Eosinophils Absolute Auto 0.1 K/mm3 (0-0.3); Eosinophils Percent Auto 2.1 % (0-4.4); Hematocrit 40.3 % (37.0-47.0); Immature Granulocyte Absolute 0.02 K/mm3 (0.00-0.031); Immature Granulocyte Percent A 0.3 % (0-0.5); Lymphocytes Absolute Auto 1.78 K/mm3 (0.9-3.2); Lymphocytes Percent Auto 28.8 % (18.3-44.2); Mean Corpuscular HGB Conc 32.3 g/dl (32-36); Mean Corpuscular Hemoglobin 29.7 pg (26-34); Mean Corpuscular Volume 92.2 fl (80-100); Monocytes Absolute Auto 0.4 K/mm3 (0.1-0.6); Monocytes Percent Auto 5.7 % (2.6-8.5); Neutrophils Absolute Auto 3.9 K/mm3 (1.3-6.7); Neutrophils Percent Auto 62.6 % (45.5-73.1); Platelet Count Result 217 k/mm3 (150-375); Red Blood Count 4.37 M/mm3 (4.2-5.4); Red Cell Distribution Width 12.3 % (11.5-14.5); White Blood Count 6.2 K/mm3 (4.5-10.0)
[2022-05-10 10:29] LABS: Alanine Aminotransferase 14 U/L (6-35); Alkaline Phosphatase 94 U/L (38-126); Anion Gap 9 mmol/L (8-16); Aspartate Amino Transferase 17 U/L (14-36); Bilirubin,Total 0.5 mg/dL (0.2-1.3); Blood Urea Nitrogen 12 mg/dL (7-17); Calcium 8.9 mg/dL (8.4-10.2); Carbon Dioxide 34 mmol/L (22-30); Chloride 99 mmol/L (98-107); Cholesterol 191 mg/dL (0-200); Estimated Glomerular Filt Rate > 60; Glucose 104 mg/dL (65-110); HDL Direct 45 mg/dL; LDL Cholesterol Direct 110 mg/dL; Potassium 4.2 mmol/L (3.4-5.0); Sodium 142 mmol/L (137-145); Triglycerides 179 mg/dL (<150)
[2022-05-10 10:35] LABS: Vitamin D 25 Hydroxy 15.1 ng/mL
[2022-05-10 11:35] LABS: Folic Acid 4.2 ng/mL (2.76->20)
== END 2022-05-10 09:19 | disposition home or self-care (01) ==
PROVIDERS: PCP Internal Medicine; Visit Provider Internal Medicine
DX: E55.9 Vitamin D deficiency, unspecified (principal); E78.00 Pure hypercholesterolemia, unspecified; K81.0 Acute cholecystitis; R53.83 Other fatigue; R93.89 Abnormal findings on diagnostic imaging of other specified body structures; R79.89 Other specified abnormal findings of blood chemistry
CPT/HCPCS: 36415; 80053; 80061; 82306; 82607; 82746; 84443; 85025

== ENCOUNTER 2022-10-31 12:02 | Outpatient (CLI) | payer MEDICARE, SELFPAY ==
[2022-10-31 12:53] LABS: Basophils Percent Auto 0.4 % (0.2-1.2); Eosinophils Absolute Auto 0.1 K/mm3 (0-0.3); Eosinophils Percent Auto 1.6 % (0-4.4); Hematocrit 40.4 % (37.0-47.0); Hemoglobin 12.6 g/dL (12.0-15.0); Immature Granulocyte Absolute 0.02 K/mm3 (0.00-0.031); Immature Granulocyte Percent A 0.3 % (0-0.5); Lymphocytes Absolute Auto 1.87 K/mm3 (0.9-3.2); Lymphocytes Percent Auto 27.6 % (18.3-44.2); Mean Corpuscular HGB Conc 31.2 g/dl (32-36); Mean Corpuscular Hemoglobin 29.4 pg (26-34); Mean Corpuscular Volume 94.2 fl (80-100); Mean Platelet Volume 9.3 fl (7.4-10.4); Monocytes Absolute Auto 0.4 K/mm3 (0.1-0.6); Monocytes Percent Auto 6.2 % (2.6-8.5); Neutrophils Absolute Auto 4.3 K/mm3 (1.3-6.7); Neutrophils Percent Auto 63.9 % (45.5-73.1); Platelet Count Result 201 k/mm3 (150-375); Red Blood Count 4.29 M/mm3 (4.2-5.4); Red Cell Distribution Width 12.5 % (11.5-14.5); White Blood Count 6.8 K/mm3 (4.5-10.0)
[2022-10-31 13:10] LABS: Appearance Urine Clear (Clear); Bilirubin Urine Negative (Negative); Blood Urine Negative (Negative); Color Urine Yellow (Yellow); Glucose Urine UA Negative (Negative); Ketones Urine Negative (Negative); Leukocyte Esterase Ur Trace LEU/UL (Negative); Nitrate Urine Negative (Negative); Protein Urine Negative (Negative); Urobilinogen Urine 0.2 mg/dL (<2.0)
[2022-10-31 13:13] LABS: Alanine Aminotransferase 18 U/L (6-35); Alkaline Phosphatase 94 U/L (38-126); Anion Gap 3 mmol/L (8-16); Aspartate Amino Transferase 20 U/L (14-36); Bilirubin,Total 0.4 mg/dL (0.2-1.3); Blood Urea Nitrogen 8 mg/dL (7-17); Calcium 8.7 mg/dL (8.4-10.2); Carbon Dioxide 34 mmol/L (22-30); Chloride 105 mmol/L (98-107); Cholesterol 211 mg/dL (0-200); Estimated Glomerular Filt Rate > 60; Glucose 98 mg/dL (65-110); HDL Direct 45 mg/dL; Potassium 4.7 mmol/L (3.4-5.0); Sodium 142 mmol/L (137-145); Triglycerides 172 mg/dL (<150)
[2022-10-31 13:17] LABS: Mucus Urine Rare /lpf; RBC Urine 0-2 /hpf (0-2); Squamous Epithelial Cell Urine Occasional /hpf (Few)
[2022-10-31 13:19] LABS: Add Urine Microscopic? YES
[2022-10-31 13:24] LABS: LDL Cholesterol Direct 118 mg/dL
[2022-10-31 13:36] LABS: Iron 66 ug/dL (37-170)
[2022-10-31 14:01] LABS: Percent Iron Saturation 17 % (20-50)
[2022-10-31 14:19] LABS: Folic Acid 10.1 ng/mL (2.76->20)
[2022-10-31 15:20] LABS: Vitamin D 25 Hydroxy < 12.8 ng/mL
== END 2022-10-31 12:03 | disposition home or self-care (01) ==
PROVIDERS: PCP Internal Medicine; Visit Provider Internal Medicine
DX: K81.0 Acute cholecystitis (principal); E53.8 Deficiency of other specified B group vitamins; R53.83 Other fatigue; E55.9 Vitamin D deficiency, unspecified; E78.5 Hyperlipidemia, unspecified; R93.89 Abnormal findings on diagnostic imaging of other specified body structures; R79.89 Other specified abnormal findings of blood chemistry; R31.9 Hematuria, unspecified
CPT/HCPCS: 36415; 80053; 80061; 81001; 82306; 82607; 82746; 83540; 83550; 84443; 85025

== ENCOUNTER 2023-12-25 09:46 | Outpatient (CLI) | payer MEDICARE, SELFPAY ==
[2023-12-25 10:17] LABS: Basophils Percent Auto 0.6 % (0.2-1.2); Eosinophils Absolute Auto 0.1 K/mm3 (0-0.3); Eosinophils Percent Auto 1.8 % (0-4.4); Hematocrit 41.4 % (37.0-47.0); Hemoglobin 12.9 g/dL (12.0-15.0); Immature Granulocyte Absolute 0.01 K/mm3 (0.00-0.031); Immature Granulocyte Percent A 0.1 % (0-0.5); Lymphocytes Percent Auto 29.3 % (18.3-44.2); Mean Corpuscular HGB Conc 31.2 g/dl (32-36); Mean Corpuscular Hemoglobin 28.7 pg (26-34); Mean Corpuscular Volume 92.2 fl (80-100); Mean Platelet Volume 9.3 fl (7.4-10.4); Monocytes Absolute Auto 0.5 K/mm3 (0.1-0.6); Monocytes Percent Auto 6.6 % (2.6-8.5); Neutrophils Absolute Auto 4.4 K/mm3 (1.3-6.7); Neutrophils Percent Auto 61.6 % (45.5-73.1); Platelet Count Result 219 k/mm3 (150-375); Red Blood Count 4.49 M/mm3 (4.2-5.4); Red Cell Distribution Width 12.7 % (11.5-14.5); White Blood Count 7.2 K/mm3 (4.5-10.0)
[2023-12-25 10:33] LABS: Appearance Urine Clear (Clear); Bacteria Urine None Seen /hpf; Bilirubin Urine Negative (Negative); Blood Urine Negative (Negative); Color Urine Yellow (Yellow); Glucose Urine UA Negative (Negative); Ketones Urine Trace mg/dL (Negative); Leukocyte Esterase Ur Trace LEU/UL (NEGATIVE); Nitrate Urine Negative (Negative); Non Pathogenic Casts 0-2; Protein Urine Trace mg/dL (Negative); RBC Urine 0-2 /hpf (0-2); Specific Grav Ur 1.022 (1.001-1.035); Squamous Epithelial Cell Urine Occasional /hpf (Few); WBC Urine 0-5 /hpf (0-3)
[2023-12-25 10:38] LABS: Alanine Aminotransferase 18 U/L (6-35); Albumin Level 4.1 g/dL (3.5-5.1); Alkaline Phosphatase 103 U/L (38-126); Anion Gap 6 mmol/L (8-16); Aspartate Amino Transferase 22 U/L (14-36); Bilirubin,Total 0.7 mg/dL (0.2-1.3); Blood Urea Nitrogen 9 mg/dL (7-17); Carbon Dioxide 31 mmol/L (22-30); Chloride 103 mmol/L (98-107); Cholesterol 192 mg/dL (0-200); Estimated Glomerular Filt Rate > 60; Glucose 102 mg/dL (65-110); HDL Direct 51 mg/dL; Potassium 3.7 mmol/L (3.4-5.0); Sodium 140 mmol/L (137-145); Triglycerides 179 mg/dL (<150)
[2023-12-25 10:39] LABS: Add Urine Microscopic? YES
[2023-12-25 10:52] LABS: LDL Cholesterol Direct 117 mg/dL
[2023-12-25 11:14] LABS: Iron 76 ug/dL (37-170)
[2023-12-25 11:23] LABS: Percent Iron Saturation 20 % (20-50)
[2023-12-25 14:34] LABS: Vitamin D 25 Hydroxy 23.7 ng/mL
== END 2023-12-25 09:47 | disposition home or self-care (01) ==
LOC: ANHLAB 09:50
PROVIDERS: PCP Physician Assistant; Referring Provider Physician Assistant; Visit Provider Internal Medicine
DX: D64.9 Anemia, unspecified (principal); E53.8 Deficiency of other specified B group vitamins; E55.9 Vitamin D deficiency, unspecified; E61.1 Iron deficiency; E78.5 Hyperlipidemia, unspecified; R53.83 Other fatigue; K81.0 Acute cholecystitis; R79.89 Other specified abnormal findings of blood chemistry; R39.15 Urgency of urination
CPT/HCPCS: 36415; 80053; 80061; 81001; 82306; 82607; 83540; 83550; 84443; 85025; 87086